=== PATIENT | male | born 1985 | race Caucasian/White ===

== ENCOUNTER 2020-09-23 23:28 | Emergency (ER) | payer OTHER ==
--- NOTE | 2020-09-24 03:16 | EDM.PDOCBH ---
<Viktor Rockwell - Last Filed: 09/24/20 06:25> ED HPI GENERAL MEDICAL PROBLEM - General Chief Complaint: Behavioral/Psych Stated Complaint: OD Time Seen by Provider: 09/23/20 23:37 Source of Information: Reports: Patient, Family (Brother) History Limitations: Reports: Intoxication, Uncooperative - History of Present Illness INITIAL COMMENTS - FREE TEXT/NARRATIVE: Jm is a 34-year-old male brought in by his brother for evaluation of possible overdose on cyclobenzaprine. The brother had spent the weekend with the patient and after leaving got a text from the patient stating that " thank you for coming down and spending the weekend with me, not sure that I will be around for another." In addition, he inquired about where the dad's safe was. It appears that he has been having issues with his ex-girlfriend who he still lives with. The patient is intoxicated and uncooperative so he is not very forthcoming with any information. He does report that he took 8 cyclobenzaprine over the last 10 hours for his "back pain". He denies that he took it to commit suicide. Of note, out of a bottle of 60 tablets that was prescribed in 2019, there are 46 tablets remaining. Because of the lack of cooperation, I initiated a 72-hour hold on the patient. For being evaluated, the patient tried to elope and was intercepted by his brother and then by me at the doorway. We escorted him back to his room and informed him of the hold and that law enforcement will be contacted should he try to elope. - Related Data Allergies Allergy/AdvReac Type Severity Reaction Status Date / Time No Known Allergies Allergy Verified 09/24/20 02:29 Home Meds: Home Meds Cyclobenzaprine [Flexeril] 10 mg PO TID PRN 09/24/20 [History] Loratadine/Pseudoephedrine [Claritin-D 24 Hour Tablet] 1 each PO DAILY PRN 09/24/20 [History] buPROPion HCL [Bupropion Xl] 300 mg PO DAILY 09/24/20 [History] Past Medical History Endocrine/Metabolic History: Reports: Vitamin D Deficiency, Other (See Below) Other Endocrine/Metabolic History: vitamin B deficiency - Infectious Disease History Infectious Disease History: Reports: Chicken Pox, Influenza, Novel Coronavirus - Past Surgical History HEENT Surgical History: Reports: RAY Social & Family History - Tobacco Use Tobacco Use Status *Q: Current Some Day Tobacco User Years of Tobacco use: 17 Packs/Tins Daily: 0 Tobacco Use Comment: smokes socially- less than weekly - Caffeine Use Caffeine Use: Reports: None - Alcohol Use Days Per Week of Alcohol Use: 2 Number of Drinks Per Day: 4 Total Drinks Per Week: 8 - Recreational Drug Use Recreational Drug Use: No ED ROS GENERAL - Review of Systems Review Of Systems: Unable To Obtain Reason Not Obtained: Patient not cooperative with answering questions. ED EXAM, BEHAVIORAL HEALTH - Physical Exam Exam: See Below General Appearance: Alert, Anxious Eye Exam: Bilateral Eye: EOMI, PERRL Throat/Mouth: Normal Inspection, Normal Oropharynx Head: Atraumatic, Normocephalic Neck: Normal Inspection, Supple, Non-Tender, Full Range of Motion Respiratory/Chest: No Respiratory Distress, Lungs Clear, Normal Breath Sounds Cardiovascular: Normal Peripheral Pulses, Regular Rate, Rhythm, No Murmur GI/Abdominal: Normal Bowel Sounds, Soft, Non-Tender Back Exam: Normal Inspection Extremities: Normal Inspection Neurological: Alert, Normal Mood/Affect, Normal Cognition, Normal Reflexes Psychiatric: Alert, Normal Cognition, Oriented, Depressed Mood Skin Exam: Warm, Dry, Intact, Normal color COURSE, BEHAVIORAL HEALTH COMP - Course Re-Assessment/Re-Exam: I discussed the situation with Miranda, his significant other concerning what has been going on with Jareth. She reports that they have been together for 7 years and Donovan considered her son as a zone although biological father is not Jareth and that they have been going through some difficulties in the relationship. At one point she moved out but has moved back in. She states that a month ago diana made comments to her that everything is in her name and he was just going to disappear. This scared came and she contacted the patient's mother for advice. Jareth was intoxicated at the time he made these comments and after he made the comments he went to bed and the next morning when he woke up everything seemed to be better. Tonight, Jareth had texted his brother and, "thanks for hanging out this weekend, I not sure I will be here for another." Yunier attempted to call Jarteh but the phone went directly to [employer] so Yunier and his signi ficant other got in the car and drove from [place] to [place] to confront Jareth and found him passed out on the couch downstairs. When Jareth saw Yunier he cried and then at some point told Yunier that he had taken a bunch of pills at which point they (Yunier and his ) got pill dressed and brought him to the ER for evaluation. There have been a number of times that Yunier and Jareth's sister has also had concerns of jareth doing something drastic. They both blamed Miranda for the issue stating that she is leveraging the use of her son as a means of maintaining residence in Jareth's house and that the ongoing stressors of the relationship is contributing to the patient's issues. Both Yunier and Miranda report that Jareth does drink quite a bit of alcohol on a regular basis. Jareth reported to me that he drank 2 glasses of wine but when I talked to Miranda he did drink 2 glasses of wine at dinner and then drank at the bar when he took the garbage down to the local bar and then drank more in the hot tub when he was sitting in the hot tub with him tonight which is why he was afterwards found passed out on the couch downstairs. His alcohol level was 0.337 on arrival to the ED. Yunier stated that Jareth had told him he took 8 Flexeril over the last 10 hours, however, Jareth tells me that he only took 3 all day. He certainly does not seem somnolent as I would expect with cyclobenzaprine. Did ask both Miranda and Yunier about the safe at the father's house and then stated that there are 3 safes at the father's house with some of them containing weapons but it did not make sense to him why Jareth would want to open the safest to get money to travel as that is not typical for him. Jareth has not been cooperative with a urine drug screen, but did allow blood to be drawn and has a normal CBC, comprehensive metabolic profile, and ethanol of 337, and negative acetaminophen and salicylate. When I asked Jareth about the text to his brother Yunier, he states that it was misinterpreted and he just had meant that he was going to be traveling and was not going to be there next weekend. When I ask about the alcohol intake he states that he had 2 glasses of wine but denied any other alcohol. When I asked about the cyclobenzaprine he states that he did not take 8 tablets but only took 3 and that he did not tell his brother that he took too many pills. He states that his brother Yunier is emotional when overreacts. Jareth is definitely demonstrating that he minimalize his everything. Based on the initial story and collateral information received from both Yunier (the patient's brother) and Miranda (the patient's significant other) I have sufficient concerns of suicide ideation and I am recommending inpatient admission and endorse the 72-hour hold continue. 04:20 Jareth gave me permission to call his sister Britney, who is a psychologist, to get collateral information. I called Britney and had a discussion with her concerning her brother and she has significant concerns about his escalating alcohol use, risky behavior, and the stressors related to the patient's relationship to Miranda. Britney tells me that the patient for the most part starts drinking from the time he wakes in the morning until he passes out at night. She states that in recent times he has actually been ejected from a bar for drinking too much and reports incidents where he is running around trying to get somebody's car keys to drive away because he is angry but is too intoxicated to drive. She is not aware of him having any DUI charges but states that he is a heavy daily drinker which is contributed to his mood. She agrees that keeping the patient on a hold and arranging for inpatient admission is probably warranted as the entire family has concerns about the patient and his mental health. She feels that his alcoholism is likely masking his mental health issues. She also reports that he recently is started using illicit drugs reporting that he used cocaine for the first time when he was in [place] last month. She reports that he did psychedelic mushrooms [place] and she is also aware that he is using a tetrahydrocannabinol at [employer]. He had inquired as to whether or not we had done a drug screen on the patient. Medical Clearance: 09/24/20 05:22 I have reviewed the labs and the patient has an alcohol of 337, normal CBC and comprehensive metabolic profile. His acetaminophen and salicyl ate are negative. Urinalysis is unremarkable. Urine drug screen is negative. And his COVID-19 test is negative. Patient is medically cleared for inpatient admission. Discharge vs Psych Eval/Treatment:: 09/24/20 04:50 I did send the patient's labs and my notes for review at [facility] in [place], [place]. 09/24/20 06:[address] [facility] called back and stated that they felt that this was not an appropriate place for the patient to go as he likely needs CD treatment to for his alcohol intake and recommended other places. I then placed a call to the [facility] to see if they had any bed availability. They will fax the standard intake form as well as information that they require to evaluate the patient for possible admission at [facility] in [place], [place] 09/24/20 07:00 care of the patient be turned over from Dr. Rockwell to Dr. Calderon while awaiting for the placement of the [facility] an [facility]. Departure - Departure Disposition: Home, Self-Care 01 Clinical Impression: Alcohol abuse, Suicide ideation Depression Qualifiers: Depression Type: major depressive disorder Major depression recurrence: recurrent Active/Remission status: currently active Major depression episode severity: moderate Qualified Code(s): F33.1 - Major depressive disorder, recurrent, moderate - Discharge Information Instructions: Substance Use Disorder and Mental Illness Referrals: PCP,None [Primary Care Provider] - Forms: ED Department Discharge Care Plan Goals: Avoid any alcohol intake for the next couple weeks while you are coming up with an outpatient plan to deal with your chronic issues that led to your current situation. Return anytime if you feel you are worsening. Sepsis Event Note (ED) - Evaluation Sepsis Screening Result: No Definite Risk <Roscoe Calderon - Last Filed: 09/24/20 16:20> COURSE, BEHAVIORAL HEALTH COMP - Course Re-Assessment/Re-Exam: His alcohol is now below the legal limit therefore we have asked crisis team to come help evaluate this gentleman for placement <Byron Silveira - Last Filed: 09/25/20 17:33> COURSE, BEHAVIORAL HEALTH COMP - Course Re-Assessment/Re-Exam: Placement of this patient has been attempted now for almost 40 hours, his sister is here who has psychology experience and the patient himself is now sobered up and no longer feels suicidal. They have come up with a plan to initiate outpatient treatment. I had a long discussion with the patient and his sister, and do feel he is safe for discharge at this time. Departure - Departure Time of Disposition: 15:46 <Arielle Kaur - Last Filed: 09/26/20 04:34> COURSE, BEHAVIORAL HEALTH COMP - Course Vital Signs: Last Vital Signs Temp 98.2 F 09/24/20 02:40 Pulse 86 09/24/20 02:40 Resp 18 09/24/20 02:40 BP 150/96 H 09/24/20 02:40 Pulse Ox 97 09/24/20 02:40 Orders, Labs, Meds: Laboratory Tests 09/23/20 09/23/20 09/23/20 Range/Units 23:50 23:50 23:50 WBC 7.9 (4.5-11.0) K/uL RBC 5.33 (4.30-5.90) M/uL Hgb 17.2 H (12.0-15.0) g/dL Hct 49.7 (40.0-54.0) % MCV 93 (80-98) fL MCH 32 H (27-31) pg MCHC 35 (32-36) % Plt Count 280 (150-400) K/uL Neut % (Auto) 49 (36-66) % Lymph % (Auto) 40 (24-44) % Winston % (Auto) 8 H (2-6) % Eos % (Auto) 2 (2-4) % Baso % (Auto) 1 (0-1) % Sodium 143 (140-148) mmol/L Potassium 4.3 (3.6-5.2) mmol/L Chloride 102 (100-108) mmol/L Carbon Dioxide 26 (21-32) mmol/L Anion Gap 15.4 H (5.0-14.0) mmol/L BUN 9 (7-18) mg/dL Creatinine 1.0 (0.8-1.3) mg/dL Est Cr Clr Drug Dosing TNP Estimated GFR (MDRD) > 60 (>60) Glucose 90 (74-106) mg/dL Calcium 9.2 (8.5-10.1) mg/dL Total Bilirubin 0.3 (0.2-1.0) mg/dL AST 34 (15-37) U/L ALT 30 (12-78) U/L Alkaline Phosphatase 95 (46-116) U/L Total Protein 7.8 (6.4-8.2) g/dL Albumin 4.6 (3.4-5.0) g/dL Globulin 3.2 (2.3-3.5) g/dL Albumin/Globulin Ratio 1.4 (1.2-2.2) Urine Color (YELLOW) Urine Appearance (CLEAR) Urine pH (5.0-8.0) Ur Specific [place] (1.008-1.030) Urine Protein (NEGATIVE) mg/dL Urine Glucose (UA) (NEGATIVE) mg/dL Urine Ketones (NEGATIVE) mg/dL Urine Occult Blood (NEGATIVE) Urine Nitrite (NEGATIVE) Urine Bilirubin (NEGATIVE) Urine Urobilinogen (0.2-1.0) EU/dL Ur Leukocyte Esterase (NEGATIVE) Urine RBC (0-5) Urine WBC (0-5) Ur Epithelial Cells Amorphous Sediment Urine Bacteria Urine Mucus Salicylates (2.0-20.0) mg/dL Urine Opiates Screen (NEGATIVE) Ur Oxycodone Screen (NEGATIVE) Urine Methadone Screen (NEGATIVE) Ur Propoxyphene Screen (NEGATIVE) Acetaminophen (10.0-30.0) ug/mL Ur Barbiturates Screen (NEGATIVE) Ur Tricyclics Screen (NEGATIVE) Ur Phencyclidine Scrn (NEGATIVE) Ur Amphetamine Screen (NEGATIVE) U Methamphetamines Scrn (NEGATIVE) Urine MDMA Screen (NEGATIVE) U Benzodiazepines Scrn (NEGATIVE) U Cocaine Metab Screen (NEGATIVE) U Marijuana (THC) Screen (NEGATIVE) Ethyl Alcohol 337 mg/dL SARS CoV-2 RNA Rapid LEIDA 09/24/20 09/24/20 09/24/20 Range/Units 00:17 00:17 04:41 WBC (4.5-11.0) K/uL RBC (4.30-5.90) M/uL Hgb (12.0-15.0) g/dL Hct (40.0-54.0) % MCV (80-98) fL MCH (27-31) pg MCHC (32-36) % Plt Count (150-400) K/uL Neut % (Auto) (36-66) % Lymph % (Auto) (24-44) % Winston % (Auto) (2-6) % Eos % (Auto) (2-4) % Baso % (Auto) (0-1) % Sodium (140-148) mmol/L Potassium (3.6-5.2) mmol/L Chloride (100-108) mmol/L Carbon Dioxide (21-32) mmol/L Anion Gap (5.0-14.0) mmol/L BUN (7-18) mg/dL Creatinine (0.8-1.3) mg/dL Est Cr Clr Drug Dosing Estimated GFR (MDRD) (>60) Glucose (74-106) mg/dL Calcium (8.5-10.1) mg/dL Total Bilirubin (0.2-1.0) mg/dL AST (15-37) U/L ALT (12-78) U/L Alkaline Phosphatase (46-116) U/L Total Protein (6.4-8.2) g/dL Albumin (3.4-5.0) g/dL Globulin (2.3-3.5) g/dL Albumin/Globulin Ratio (1.2-2.2) Urine Color Yellow (YELLOW) Urine Appearance Clear (CLEAR) Urine pH 5.5 (5.0-8.0) Ur Specific [place] 1.010 (1.008-1.030) Urine Protein Negative (NEGATIVE) mg/dL Urine Glucose (UA) Negative (NEGATIVE) mg/dL Urine Ketones Negative (NEGATIVE) mg/dL Urine Occult Blood Negative (NEGATIVE) Urine Nitrite Negative (NEGATIVE) Urine Bilirubin Negative (NEGATIVE) Urine Urobilinogen 0.2 (0.2-1.0) EU/dL Ur Leukocyte Esterase Negative (NEGATIVE) Urine RBC 0-5 (0-5) Urine WBC 0-5 (0-5) Ur Epithelial Cells Rare Amorphous Sediment Few Urine Bacteria Few Urine Mucus Not seen Salicylates 0.0 L (2.0-20.0) mg/dL Urine Opiates Screen (NEGATIVE) Ur Oxycodone Screen (NEGATIVE) Urine Methadone Screen (NEGATIVE) Ur Propoxyphene Screen (NEGATIVE) Acetaminophen 0.0 L (10.0-30.0) ug/mL Ur Barbiturates Screen (NEGATIVE) Ur Tricyclics Screen (NEGATIVE) Ur Phencyclidine Scrn (NEGATIVE) Ur Amphetamine Screen (NEGATIVE) U Methamphetamines Scrn (NEGATIVE) Urine MDMA Screen (NEGATIVE) U Benzodiazepines Scrn (NEGATIVE) U Cocaine Metab Screen (NEGATIVE) U Marijuana (THC) Screen (NEGATIVE) Ethyl Alcohol mg/dL SARS CoV-2 RNA Rapid LEIDA 09/24/20 09/24/20 09/24/20 Range/Units 04:41 04:50 07:00 WBC (4.5-11.0) K/uL RBC (4.30-5.90) M/uL Hgb (12.0-15.0) g/dL Hct (40.0-54.0) % MCV (80-98) fL MCH (27-31) pg MCHC (32-36) % Plt Count (150-400) K/uL Neut % (Auto) (36-66) % Lymph % (Auto) (24-44) % Winston % (Auto) (2-6) % Eos % (Auto) (2-4) % Baso % (Auto) (0-1) % Sodium (140-148) mmol/L Potassium (3.6-5.2) mmol/L Chloride (100-108) mmol/L Carbon Dioxide (21-32) mmol/L Anion Gap (5.0-14.0) mmol/L BUN (7-18) mg/dL Creatinine (0.8-1.3) mg/dL Est Cr Clr Drug Dosing Estimated GFR (MDRD) (>60) Glucose (74-106) mg/dL Calcium (8.5-10.1) mg/dL Total Bilirubin (0.2-1.0) mg/dL AST (15-37) U/L ALT (12-78) U/L Alkaline Phosphatase (46-116) U/L Total Protein (6.4-8.2) g/dL Albumin (3.4-5.0) g/dL Globulin (2.3-3.5) g/dL Albumin/Globulin Ratio (1.2-2.2) Urine Color (YELLOW) Urine Appearance (CLEAR) Urine pH (5.0-8.0) Ur Specific [place] (1.008-1.030) Urine Protein (NEGATIVE) mg/dL Urine Glucose (UA) (NEGATIVE) mg/dL Urine Ketones (NEGATIVE) mg/dL Urine Occult Blood (NEGATIVE) Urine Nitrite (NEGATIVE) Urine Bilirubin (NEGATIVE) Urine Urobilinogen (0.2-1.0) EU/dL Ur Leukocyte Esterase (NEGATIVE) Urine RBC (0-5) Urine WBC (0-5) Ur Epithelial Cells Amorphous Sediment Urine Bacteria Urine Mucus Salicylates (2.0-20.0) mg/dL Urine Opiates Screen Negative (NEGATIVE) Ur Oxycodone Screen Negative (NEGATIVE) Urine Methadone Screen Negative (NEGATIVE) Ur Propoxyphene Screen Negative (NEGATIVE) Acetaminophen (10.0-30.0) ug/mL Ur Barbiturates Screen Negative (NEGATIVE) Ur Tricyclics Screen Negative (NEGATIVE) Ur Phencyclidine Scrn Negative (NEGATIVE) Ur Amphetamine Screen Negative (NEGATIVE) U Methamphetamines Scrn Negative (NEGATIVE) Urine MDMA Screen Negative (NEGATIVE) U Benzodiazepines Scrn Negative (NEGATIVE) U Cocaine Metab Screen Negative (NEGATIVE) U Marijuana (THC) Screen Negative (NEGATIVE) Ethyl Alcohol 208 mg/dL SARS CoV-2 RNA Rapid LEIDA Negative 09/24/20 Range/Units 14:26 WBC (4.5-11.0) K/uL RBC (4.30-5.90) M/uL Hgb (12.0-15.0) g/dL Hct (40.0-54.0) % MCV (80-98) fL MCH (27-31) pg MCHC (32-36) % Plt Count (150-400) K/uL Neut % (Auto) (36-66) % Lymph % (Auto) (24-44) % Winston % (Auto) (2-6) % Eos % (Auto) (2-4) % Baso % (Auto) (0-1) % Sodium (140-148) mmol/L Potassium (3.6-5.2) mmol/L Chloride (100-108) mmol/L Carbon Dioxide (21-32) mmol/L Anion Gap (5.0-14.0) mmol/L BUN (7-18) mg/dL Creatinine (0.8-1.3) mg/dL Est Cr Clr Drug Dosing Estimated GFR (MDRD) (>60) Glucose (74-106) mg/dL Calcium (8.5-10.1) mg/dL Total Bilirubin (0.2-1.0) mg/dL AST (15-37) U/L ALT (12-78) U/L Alkaline Phosphatase (46-116) U/L Total Protein (6.4-8.2) g/dL Albumin (3.4-5.0) g/dL Globulin (2.3-3.5) g/dL Albumin/Globulin Ratio (1.2-2.2) Urine Color (YELLOW) Urine Appearance (CLEAR) Urine pH (5.0-8.0) Ur Specific [place] (1.008-1.030) Urine Protein (NEGATIVE) mg/dL Urine Glucose (UA) (NEGATIVE) mg/dL Urine Ketones (NEGATIVE) mg/dL Urine Occult Blood (NEGATIVE) Urine Nitrite (NEGATIVE) Urine Bilirubin (NEGATIVE) Urine Urobilinogen (0.2-1.0) EU/dL Ur Leukocyte Esterase (NEGATIVE) Urine RBC (0-5) Urine WBC (0-5) Ur Epithelial Cells Amorphous Sediment Urine Bacteria Urine Mucus Salicylates (2.0-20.0) mg/dL Urine Opiates Screen (NEGATIVE) Ur Oxycodone Screen (NEGATIVE) Urine Methadone Screen (NEGATIVE) Ur Propoxyphene Screen (NEGATIVE) Acetaminophen (10.0-30.0) ug/mL Ur Barbiturates Screen (NEGATIVE) Ur Tricyclics Screen (NEGATIVE) Ur Phencyclidine Scrn (NEGATIVE) Ur Amphetamine Screen (NEGATIVE) U Methamphetamines Scrn (NEGATIVE) Urine MDMA Screen (NEGATIVE) U Benzodiazepines Scrn (NEGATIVE) U Cocaine Metab Screen (NEGATIVE) U Marijuana (THC) Screen (NEGATIVE) Ethyl Alcohol 32 mg/dL SARS CoV-2 RNA Rapid LEIDA Discharge vs Psych Eval/Treatment:: 09/24/20 18:[address] Officer, ER at change of shift/transfer of care. Recommendation at this time is for psychiatric placement as per mobile crisis evaluation. patient is on a 72 hour hold. bed is pending at [facility] 09/24/20 20:21 notified by [employer] that [facility] has declined. will attempt other facilities 09/26/20 04:33 late entry for 09/25/2020 @ 0700--case d/w Dr Romero, ER at change of shift/transfer of care. still pending acceptance for inpatient psychiatric care. patient is on 72 hour hold
== END 2020-09-25 15:46 | disposition home or self-care (01) ==
LOC: JP.ED 23:28
DX: F33.1 Major depressive disorder, recurrent, moderate (principal); F10.10 Alcohol abuse, uncomplicated; Y90.1 Blood alcohol level of 20-39 mg/100 ml; Z72.0 Tobacco use; Z20.822 Contact with and (suspected) exposure to COVID-19
CPT/HCPCS: 36415; 80053; 80143; 80179; 80305-QW; 80307; 81001; 85025; 99284; U0002